=== PATIENT | male | born 1980 | race Asian ===

== ENCOUNTER → 2017-10-15 | Outpatient (CLI) | payer OTHER ==
[2017-10-15 10:37] LABS: CHOLESTEROL/HDL RATIO 5.4
== END | disposition home or self-care (01) ==
LOC: LB 08:59
PROVIDERS: Dermatology
DX: L70.0 Acne vulgaris (principal)

== ENCOUNTER → 2017-11-15 | Outpatient (CLI) | payer OTHER ==
[2017-11-15 08:31] LABS: CHOLESTEROL/HDL RATIO 5.4
== END | disposition home or self-care (01) ==
LOC: LB 07:47
PROVIDERS: Dermatology
DX: L70.0 Acne vulgaris (principal)

== ENCOUNTER → 2017-12-19 | Outpatient (CLI) | payer OTHER | END | disposition home or self-care (01) | LOC: LB 08:17 | PROVIDERS: Family Medicine | DX: L70.0 Acne vulgaris (principal) ==